=== PATIENT | male | born 1970 | race Caucasian/White ===

== ENCOUNTER 2023-12-25 15:30 | Emergency (ER) | payer OTHER, SELFPAY ==
[2023-12-25 15:30] VITALS: BP 167/96; PULSE 103; RESP 16; TEMP 37; O2SAT 97; BMI 29.5
[2023-12-25] MEDS: KETOROLAC 30MG/ML VIAL 15 MG IV (15:38)
[2023-12-25 15:40] VITALS: BP 167/96; PULSE 98; O2SAT 98
[2023-12-25 15:43] VITALS: BP 151/93; PULSE 90; O2SAT 99
--- NOTE | 2023-12-25 15:48 | HMH.EDGENADL ---
Discharge Plan Disposition Patient Disposition: Home, Self-Care Condition: Good Prescriptions Prescriptions: New tamsulosin 0.4 mg capsule 0.4 mg PO HS Qty: 10 0RF ketorolac 10 mg tablet 10 mg PO Q8H PRN (Reason: pain) 1 Days Qty: 10 0RF oxycodone 5 mg tablet 5 mg PO TID PRN (Reason: pain (scale score 7-10)) Qty: 12 0RF Referrals Follow up/Referrals: Provider,MD Magen [Referring] - See instructions Joe Cordero MD [Referring] - See instructions Activity Restrictions/Add. Instructions Additional Instructions/Restrictions: Please call in the morning to make the appointment with urology. We have sent prescriptions into your pharmacy. Please strain all of your urine. Return to ER for any worsening signs or symptoms as needed Clinical Impressions Clinical Impression: Ureterolithiasis Instructions Patient Instructions: DI for Kidney Stones Print Language Print Language: Bhutanese Discharge ED Provider: Alonso Magallanes General Adult HPI <MERRY Muir - Last Filed: 12/25/23 18:41> General Chief complaint: Abdominal Pain Stated complaint: abd, back pain Time Seen by Provider: 12/25/23 15:47 History of Present Illness HPI narrative: Patient presents for evaluation of left flank pain. Patient has had intermittent left flank pain since yesterday. There is no associated fever chills hemoptysis hematochezia melena vomiting or diarrhea. Patient is passing flatus. Had a normal bowel movement. He is tolerating oral intake. Patient states that the pain is coming gone but it has been present since 2:00 this afternoon. Is present on arrival. Related Data Previous Rx's ?Medication ?Instructions ?Recorded ketorolac 10 mg tablet 10 mg PO Q8H PRN pain 1 day #10 12/25/23 tabs oxycodone 5 mg tablet 5 mg PO TID PRN pain (scale score 12/25/23 7-10) #12 tabs tamsulosin 0.4 mg capsule 0.4 mg PO HS #10 caps 12/25/23 Allergies Allergy/AdvReac Type Severity Reaction Status Date / Time No Known Allergies Allergy Verified 12/25/23 16:48 PFSH <MERRY Muir - Last Filed: 12/25/23 18:41> [facility] Disclaimer: The information contained in this section may have been updated after the patient was seen, as this information can be updated by other users. Social History (Updated 12/25/23 @ 18:41 by MERRY Muir) Smoking Status: Current every day smoker alcohol intake: never current occupational status: employed Travel in the last 8 weeks: None <MERRY Muir - Last Filed: 12/25/23 18:41> ROS Obtained: Yes Systems reviewed as appropriate & no additional complaints except as documented Physical Exam <MERRY Muir - Last Filed: 12/25/23 18:41> General General appearance: alert and in no apparent distress Neck Neck exam: Present lymphadenopathy Respiratory Respiratory exam: Present normal lung sounds bilaterally Cardiovascular Cardiovascular exam: Present regular rate Neurological Exam Neurological exam: Present alert and oriented X3 Medical Decision Making <MERRY Muir - Last Filed: 12/25/23 18:41> Medical Records Medical records reviewed: Yes I reviewed the patient's medical records. Ric Inquiry Pt receiving controlled substance: No Vital Signs: 12/25/23 15:30 12/25/23 15:40 12/25/23 15:43 Temperature 98.6 F Temperature Source Oral Pulse Rate 98 H 90 Pulse Rate [Left Radial] 103 H Respiratory Rate 16 Blood Pressure 167/96 H 151/93 H Blood Pressure [Right Arm] 167/96 H Blood Pressure Mean [Right Arm] 119 02 Sat by Pulse Oximetry 97 98 99 Oxygen Delivery Method Room Air Room Air Room Air 12/25/23 16:00 12/25/23 16:30 Temperature Temperature Source Pulse Rate 95 H 88 Pulse Rate [Left Radial] Respiratory Rate Blood Pressure 158/89 H 142/85 H Blood Pressure [Right Arm] Blood Pressure Mean [Right Arm] 02 Sat by Pulse Oximetry 97 96 Oxygen Delivery Method Room Air Room Air Lab Data Lab results reviewed: Yes I reviewed the patient's lab results. Lab Results 12/25/23 15:38: WBC 10.4, RBC 4.82, Hgb 15.4, Hct 46.8, MCV 97.1 H, MCH 32.0 H, MCHC 33.0, RDW 13.9, Plt Count 218, MPV 8.0, Neut % (Auto) 61.1, Lymph % (Auto) 33.3, [place] % (Auto) 4.3, Eos % (Auto) 0.7, Baso % (Auto) 0.6, Neut # (Auto) 6.3, Lymph # (Auto) 3.4, [place] # (Auto) 0.4, Eos # (Auto) 0.1, Baso # (Auto) 0.1, Sodium 142, Potassium 4.5, Chloride 109 H, Carbon Dioxide 28, Anion Gap 9.5, BUN 14, Creatinine 1.10, Estimated Creat Clear 100, Estimated GFR 70, Est GFR ( Amer) 85, Glucose 141 H, Calcium 9.2, Total Bilirubin 0.6, AST 46, ALT 45, Alkaline Phosphatase 71, Total Protein 7.7, Albumin 4.2, Globulin 3.5 H, Albumin/Globulin Ratio 1.2, Lipase 104 12/25/23 15:40: Urine Color Yellow, Urine Appearance Clear, Urine pH 6.0, Ur Specific [place] >= 1.030, Urine Protein Negative, Urine Glucose (UA) Negative, Urine Ketones Negative, Urine Blood 2+ A, Urine Nitrate Negative, Urine Bilirubin Negative, Urine Urobilinogen 0.2, Ur Leukocyte Esterase Negative, Urine RBC None, Urine WBC None 12/25/23 15:38 12/25/23 15:38 Orders (Tests/Meds): ED MEDICATIONS Generic Name Dose Route Start Last Admin Trade Name Freq PRN Reason Stop Dose Admin Lactated Ringer's 1,000 mls @ 999 mls/hr 12/25/23 18:30 12/25/23 18:28 Lactated Ringer's 1000 Ml Bag IV 12/25/23 19:30 999 mls/hr .Q1H1M SARAH Administration Discontinued Medications Generic Name Dose Route Start Last Admin Trade Name Freq PRN Reason Stop Dose Admin Acetaminophen 1,000 mg 12/25/23 18:25 12/25/23 18:39 Acetaminophen 1,000mg/100ml Vial IV 12/25/23 18:26 Not Given ONCE ONE Ketorolac Tromethamine 15 mg 12/25/23 18:23 12/25/23 15:38 Ketorolac 30mg/Ml Vial IV 12/25/23 18:24 15 mg ONCE ONE Administration Morphine Sulfate 4 mg 12/25/23 18:25 12/25/23 18:39 Morphine 4mg/Ml Syringe IV 12/25/23 18:26 Not Given ONCE ONE Ondansetron HCl 4 mg 12/25/23 18:27 12/25/23 18:28 Ondansetron 4mg/2ml Vial IV 12/25/23 18:28 4 mg ONCE ONE Administration Oxycodone HCl 5 mg 12/25/23 17:13 12/25/23 17:15 Oxycodone 5mg Immediate Release Tablet PO 12/25/23 17:14 5 mg ONCE ONE Administration Tamsulosin HCl 0.4 mg 12/25/23 18:07 12/25/23 18:26 Tamsulosin 0.4mg Capsule PO 12/25/23 18:08 0.4 mg ONCE ONE Administration ORDERS Category Date Time Status CT abdomen pelvis wo con Stat Cat Scan 12/25/23 15:52 Completed CBC w/Auto Diff [Complete Blood Count Auto Diff] Stat Lab 12/25/23 15:38 Completed CMP [Comprehensive Metabolic Panel] Stat Lab 12/25/23 15:38 Completed Lipase Stat Lab 12/25/23 15:38 Completed UA [Urinalysis and Microscopic] Stat Lab 12/25/23 15:40 Completed Medical Decision Narrative: In summary patient is a 53-year-old male who presents to the emergency department for evaluation of left flank pain/left abdominal pain. Patient is hemodynamically stable upon arrival, afebrile. Physical exam is remarkable for mild CVA tenderness to percussion on the left negative on the right no abdominal tenderness on exam normal bowel sounds without rebound or guarding or rigidity.. Differential diagnosis includes kidney stone versus pyelonephritis. Initial workup will be conducted with hematologic labs CT scan abdomen pelvis urinalysis. Initial interventions include crystalloid bolus Toradol Tylenol. Initial workup reviewed by me shows hematuria without bacteria, the remainder of his hematologic labs are nonactionable. My informal interpretation of his CT scan abdomen pelvis shows a approximately 5 mm stone in the mid ureter with mild hydronephrosis prior to radiology read. Of note patient declined contrast even despite my having had a well-informed conversation with him prior to getting the scan. Upon repeat evaluation patient had initial improvement however he has had intermittent renal colic. Given this I had instructions with the patient about urology and whether or not he needed to go now or later. Patient has no red flags or concerning features other than his colic. He has been instructed to strain all urine. He has been given strict return cautions. He has been given number for Dr. Cordero of urology. Thus he is appropriate for discharge safely to his home <Alonso Magallanes MD - Last Filed: 12/25/23 18:44> Vital Signs: 12/25/23 15:30 12/25/23 15:40 12/25/23 15:43 Temperature 98.6 F Temperature Source Oral Pulse Rate 98 H 90 Pulse Rate [Left Radial] 103 H Respiratory Rate 16 Blood Pressure 167/96 H 151/93 H Blood Pressure [Right Arm] 167/96 H Blood Pressure Mean [Right Arm] 119 02 Sat by Pulse Oximetry 97 98 99 Oxygen Delivery Method Room Air Room Air Room Air 12/25/23 16:00 12/25/23 16:30 Temperature Temperature Source Pulse Rate 95 H 88 Pulse Rate [Left Radial] Respiratory Rate Blood Pressure 158/89 H 142/85 H Blood Pressure [Right Arm] Blood Pressure Mean [Right Arm] 02 Sat by Pulse Oximetry 97 96 Oxygen Delivery Method Room Air Room Air Lab Data Lab Results 12/25/23 15:38: WBC 10.4, RBC 4.82, Hgb 15.4, Hct 46.8, MCV 97.1 H, MCH 32.0 H, MCHC 33.0, RDW 13.9, Plt Count 218, MPV 8.0, Neut % (Auto) 61.1, Lymph % (Auto) 33.3, [place] % (Auto) 4.3, Eos % (Auto) 0.7, Baso % (Auto) 0.6, Neut # (Auto) 6.3, Lymph # (Auto) 3.4, [place] # (Auto) 0.4, Eos # (Auto) 0.1, Baso # (Auto) 0.1, Sodium 142, Potassium 4.5, Chloride 109 H, Carbon Dioxide 28, Anion Gap 9.5, BUN 14, Creatinine 1.10, Estimated Creat Clear 100, Estimated GFR 70, Est GFR ( Amer) 85, Glucose 141 H, Calcium 9.2, Total Bilirubin 0.6, AST 46, ALT 45, Alkaline Phosphatase 71, Total Protein 7.7, Albumin 4.2, Globulin 3.5 H, Albumin/Globulin Ratio 1.2, Lipase 104 12/25/23 15:40: Urine Color Yellow, Urine Appearance Clear, Urine pH 6.0, Ur Specific [place] >= 1.030, Urine Protein Negative, Urine Glucose (UA) Negative, Urine Ketones Negative, Urine Blood 2+ A, Urine Nitrate Negative, Urine Bilirubin Negative, Urine Urobilinogen 0.2, Ur Leukocyte Esterase Negative, Urine RBC None, Urine WBC None Orders (Tests/Meds): ED MEDICATIONS Generic Name Dose Route Start Last Admin Trade Name Freq PRN Reason Stop Dose Admin Lactated Ringer's 1,000 mls @ 999 mls/hr 12/25/23 18:30 12/25/23 18:28 Lactated Ringer's 1000 Ml Bag IV 12/25/23 19:30 999 mls/hr .Q1H1M SARAH Administration Discontinued Medications Generic Name Dose Route Start Last Admin Trade Name Freq PRN Reason Stop Dose Admin Acetaminophen 1,000 mg 12/25/23 18:25 12/25/23 18:39 Acetaminophen 1,000mg/100ml Vial IV 12/25/23 18:26 Not Given ONCE ONE Ketorolac Tromethamine 15 mg 12/25/23 18:23 12/25/23 15:38 Ketorolac 30mg/Ml Vial IV 12/25/23 18:24 15 mg ONCE ONE Administration Morphine Sulfate 4 mg 12/25/23 18:25 12/25/23 18:39 Morphine 4mg/Ml Syringe IV 12/25/23 18:26 Not Given ONCE ONE Ondansetron HCl 4 mg 12/25/23 18:27 12/25/23 18:28 Ondansetron 4mg/2ml Vial IV 12/25/23 18:28 4 mg ONCE ONE Administration Oxycodone HCl 5 mg 12/25/23 17:13 12/25/23 17:15 Oxycodone 5mg Immediate Release Tablet PO 12/25/23 17:14 5 mg ONCE ONE Administration Tamsulosin HCl 0.4 mg 12/25/23 18:07 12/25/23 18:26 Tamsulosin 0.4mg Capsule PO 12/25/23 18:08 0.4 mg ONCE ONE Administration ORDERS Category Date Time Status CT abdomen pelvis wo con Stat Cat Scan 12/25/23 15:52 Completed CBC w/Auto Diff [Complete Blood Count Auto Diff] Stat Lab 12/25/23 15:38 Completed CMP [Comprehensive Metabolic Panel] Stat Lab 12/25/23 15:38 Completed Lipase Stat Lab 12/25/23 15:38 Completed UA [Urinalysis and Microscopic] Stat Lab 12/25/23 15:40 Completed Medical Decision Narrative: In summary patient is a 53-year-old male who presents to the emergency department for evaluation of left flank pain/left abdominal pain. Patient is hemodynamically stable upon arrival, afebrile. Physical exam is remarkable for mild CVA tenderness to percussion on the left negative on the right no abdominal tenderness on exam normal bowel sounds without rebound or guarding or rigidity.. Differential diagnosis includes kidney stone versus pyelonephritis. Initial workup will be conducted with hematologic labs CT scan abdomen pelvis urinalysis. Initial interventions include crystalloid bolus Toradol Tylenol. Initial workup reviewed by me shows hematuria without bacteria, the remainder of his hematologic labs are nonactionable. My informal interpretation of his CT scan abdomen pelvis shows a approximately 5 mm stone in the mid ureter with mild hydronephrosis prior to radiology read. Of note patient declined contrast even despite my having had a well-informed conversation with him prior to getting the scan. Upon repeat evaluation patient had initial improvement however he has had intermittent renal colic. Given this I had instructions with the patient about urology and whether or not he needed to go now or later. Patient has no red flags or concerning features other than his colic. He has been instructed to strain all urine. He has been given strict return cautions. He has been given number for Dr. Cordero of urology. Thus he is appropriate for discharge safely to his home I was consulted by the MINOO, and we discussed the complexity of the problems being addressed. I approved the treatment and management plan for this patient's care in the emergency department, thus performing a substantive portion of the medical decision making. Alonso Magallanes MD Critical Care <MERRY Muir - Last Filed: 12/25/23 18:41> Critical Care Time Critical Care Time: No
--- NOTE | 2023-12-25 15:52 | CT_ITS ---
PROCEDURE INFORMATION: Exam: CT Abdomen And Pelvis Without Contrast Exam date and time: 12/25/2023 5:04 PM Age: 53 years old Clinical indication: Abdominal pain; Flank; Left; Additional info: Left flank pain left abdominal pain TECHNIQUE: Imaging protocol: Computed tomography of the abdomen and pelvis without contrast. Radiation optimization: All CT scans at this facility use at least one of these dose optimization techniques: automated exposure control; mA and/or kV adjustment per patient size (includes targeted exams where dose is matched to clinical indication); or iterative reconstruction. COMPARISON: No relevant prior studies available. FINDINGS: Lungs: The visualized lung bases demonstrate no focal infiltrates. Liver: Moderate diffuse hepatic steatosis is identified. Gallbladder and biliary ducts: Probable layering gallbladder sludge versus noncalcified gallstones. No gallbladder wall thickening. Pancreas: The pancreas is normal. Spleen: The spleen is normal. Adrenal glands: The adrenal glands appear within normal limits. Kidneys and ureters: 1 mm nonobstructing stone within the right kidney lower pole. Moderate left renal obstructive hydronephrosis. This is due to a stone within the proximal left ureter that measures 6 mm. Stomach and bowel: The stomach appears within normal limits. No wall thickening or inflammatory change. Appendix: No evidence of appendicitis. Intraperitoneal space: No free air. No evidence for focal fluid collection or ascites. No evidence for omental thickening. Vasculature: Moderate atherosclerotic calcifications of the aorta. Lymph nodes: Unremarkable. No pathologically enlarged lymph nodes are identified. Urinary bladder: The bladder appears within normal limits. No wall thickening. Reproductive: The prostate gland appears normal. Bones/joints: Unremarkable. No acute fracture. Soft tissues: Unremarkable. IMPRESSION: 1. Moderate left renal obstructive hydronephrosis. This is due to a stone within the proximal left ureter that measures 6 mm. 2. Probable layering gallbladder sludge versus noncalcified gallstones. No gallbladder wall thickening. 3. 1 mm nonobstructing stone within the right kidney lower pole.
[2023-12-25 15:59] LABS: Microscopic, Urine URINE MICROSCOPIC (MICROSCOPIC)
[2023-12-25 16:00] VITALS: BP 158/89; PULSE 95; O2SAT 97
[2023-12-25 16:01] LABS: Basophils # 0.1 K/mm3 (0-0.2); Basophils % 0.6 % (0.1-2.0); Eosinophils # 0.1 K/mm3 (0.0-0.4); Eosinophils % 0.7 % (0.1-12.0); Hematocrit 46.8 % (42.0-52.0); Hemoglobin 15.4 g/dL (14.1-18.0); Lymphocytes # 3.4 K/mm3 (0.7-4.5); Lymphocytes % 33.3 % (10-50); Mean Corpuscular Volume 97.1 fl (80-94); Monocytes # 0.4 K/mm3 (0.1-1.0); Monocytes % 4.3 % (1.7-9.3); Neutrophils # 6.3 K/mm3 (1.8-7.8); Neutrophils % 61.1 % (37.0-80.0); Platelet Count 218 K/mm3 (142-424); Red Blood Count 4.82 M/mm3 (4.60-6.20); Red Cell Distribution Width 13.9 % (11.5-17.5); White Blood Count 10.4 K/mm3 (4.8-10.8)
[2023-12-25 16:19] LABS: Appearance,Urine CLEAR (Clear); Bilirubin,Urine Negative (Negative); Blood, Urine 2+ (Negative); Color,Urine YELLOW (Yellow); Glucose,Urine (UA) Negative (Negative); Ketones,Urine Negative (Negative); Leukocyte Esterase,Urine Negative (Negative); Nitrate,Urine Negative (Negative); Protein,Urine Negative (Negative); Specific Gravity, Urine >= 1.030 (1.005-1.030); Urobilinogen,Urine 0.2 EU/dl (0.2)
[2023-12-25 16:29] LABS: Alanine Aminotransferase 45 U/L (12-78); Albumin Level 4.2 g/dl (3.5-5.0); Albumin/Globulin Ratio 1.2 (1.1-1.8); Alkaline Phosphatase 71 U/L (38-126); Anion Gap 9.5 mEq/L (5-15); Aspartate Amino Transferase 46 U/L (17-59); Bilirubin,Total 0.6 mg/dl (0.2-1.3); Blood Urea Nitrogen 14 mg/dl (9-20); Calcium 9.2 mg/dl (8.4-10.2); Carbon Dioxide 28 mmol/L (22.0-30.0); Chloride 109 mmol/L (98-107); Creatinine Clearance Estimated 100 mL/min (50-200); Estimated Glomerular Filt Rate 70 ml/min (>60); GFR (African American) 85 ML/MIN (>60); Globulin 3.5 g/dL (1.3-3.2); Glucose 141 mg/dl (74-100); Potassium 4.5 mmoL/L (3.5-5.1); Sodium 142 mmol/L (136-145); Total Protein,Serum 7.7 g/dl (6.3-8.2)
[2023-12-25 16:30] VITALS: BP 142/85; PULSE 88; O2SAT 96
[2023-12-25 16:47] LABS: Lipase 104 U/L (23-300)
--- NOTE | 2023-12-25 16:50 | PC.NURSE ---
Farheen in Radiology called and stated the pt is the ct room and has never had iv contrast and does not want it. Gonzalez & Dr Magallanes notified of this. Gonzalez will s/w to pt.
[2023-12-25] MEDS: OXYCODONE 5MG IMMEDIATE RELEASE TABLET 5 MG PO (17:15)
[2023-12-25] MEDS: TAMSULOSIN 0.4MG CAPSULE 0.4 MG PO (18:26)
[2023-12-25] MEDS: LACTATED RINGERS 1000ML 1,000 ML 999 ML IV (18:28)
[2023-12-25] MEDS: ONDANSETRON 4MG/2ML VIAL 4 MG IV (18:28)
[2023-12-25 18:40] VITALS: BP 140/80; PULSE 88; RESP 16; TEMP 37; O2SAT 98
--- NOTE | 2023-12-25 18:43 | PC.NURSE ---
Called [facility] pharmacy ([facility]) to let them know we changed prescriptions over to them.
== END 2023-12-25 18:41 | disposition home or self-care (01) ==
PROVIDERS: Physician Assistant; Emergency Provider Emergency Medicine; PCP Nurse Practitioner Family
DX: N13.0 Hydronephrosis with ureteropelvic junction obstruction (principal); N20.0 Calculus of kidney; R10.32 Left lower quadrant pain; M54.59 Other low back pain
CPT/HCPCS: 74176; 80053; 81001; 83690; 85025; 96361; 96374; 96375; 99284; J1885; J2405; J7120